=== PATIENT | male | born 1965 | race Caucasian/White ===

== ENCOUNTER → 2016-11-22 | Outpatient (CLI) | payer BC ==
[2016-11-22 17:01] LABS: HEMATOCRIT 48.1 % (38.0-50.0); HEMOGLOBIN 16.7 gm/dL (13.0-16.0)
[2016-11-22 17:48] LABS: TESTOSTERONE TOTAL 294.01 ng/dL (17-781)
[2016-11-22 17:54] LABS: PROSTATE SPECIFIC AG DIAG 0.51 ng/ml (0.0-4.0)
== END | disposition home or self-care (01) ==
LOC: CLAB 16:47
PROVIDERS: Urology
DX: E29.1 Testicular hypofunction (principal)
CPT/HCPCS: 36415; 84153; 84403; 85014; 85018